=== PATIENT | female | born 1965 | race American Indian/Alaskan Native ===

== ENCOUNTER 2016-09-26 17:04 | Emergency (ER) | payer MEDICAID, OTHER ==
--- NOTE | 2016-09-26 17:14 | EDM.PDOC ---
ED HPI Trauma - General Chief Complaint: Lower Extremity Injury/Pain Stated Complaint: KNEE PAIN [id number] Time Seen by Provider: 09/26/16 17:13 Source: Reports: Patient, Old records, RN, RN notes reviewed History Limitations: Reports: No limitations - History of Present Illness INITIAL COMMENTS - FREE TEXT/NARRATIVE: Patient complaining of left knee pain sustained today while walking. Patient felt a sudden and unexpected audible pop in the left knee. She reports immediate intense pain at left medial knee joint line with medial swelling. Denies fell today. Symptom Onset Date: 09/26/16 Method of Injury: other (walking) Severity: severe Pain/Injury Location: Reports: lower extremity, left Associated Symptoms: Reports: no other symptoms Allergies/ADRs: Allergies ibuprofen Allergy (Verified 09/26/16 17:10) Rash Home Medications: Ambulatory Orders Insulin Aspart [Novolog Flexpen] 10 units SQ TID 08/16/14 [Confirmed 09/26/16] Insulin Detemir [Levemir] 20 units SQ BEDTIME PRN 08/16/14 [Confirmed 09/26/16] Past Medical History Respiratory History: Reports: Bronchitis, recurrent, COPD Musculoskeletal History: Reports: Back pain, chronic, Osteoarthritis Other Musculoskeletal History: disc problems Endocrine/Metabolic History: Reports: Diabetes, type II, IDDM, Obesity/BMI 30+ - Past Surgical History GI Surgical History: Reports: Appendectomy Social & Family History - Family History Family Medical History: Noncontributory - Tobacco Use Smoking Status *Q: Current Every Day Smoker Tobacco Use Within Last Twelve Months: Cigarettes Years of Tobacco use: 25 Packs/Tins Daily: 0.5 Used Tobacco, but Quit: No Second Hand Smoke Exposure: No - Alcohol Use Days Per Week of Alcohol Use: 0 - Recreational Drug Use Recreational Drug Use: Yes Drug Use in Last 12 Months: No Recreational Drug Type: Reports: Oxycodone, Other (see below) - Living Situation & Occupation Living situation: Reports: with family Review of Systems - Review of Systems Review Of Systems: ROS reveals no pertinent complaints other than HPI. Trauma Exam - Physical Exam Exam: See Below Exam Limited By: No limitations General Appearance: Reports: alert, WD/WN, no apparent distress Respiratory Exam: Reports: no respiratory distress Cardiovascular: Reports: normal peripheral pulses Back: Reports: full range of motion, normal inspection, non-tender Extremities: Reports: other (left knee with mild medial swelling, no visible bruising or deformity. Decreased range of motion due to pain. Skin is intaact. 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, no motor/sensory deficits, alert , normal mood/affect, oriented x 3 Skin: Reports: Normal color, Warm/dry Course - Vital Signs Last Recorded V/S: Last Vital Signs Temp 36.0 C 09/26/16 17:14 Pulse 73 09/26/16 17:14 Resp 18 09/26/16 17:14 BP 169/75 H 09/26/16 17:14 Pulse Ox 100 09/26/16 17:14 - Orders/Labs/Meds Orders: Active Orders 24 hr Category Date Time Status Immobilizer [RC] ASDIRECTED Care 09/26/16 18:08 Ordered Acetaminophen/HYDROcodone [[place] 325-10 MG] Med 09/26/16 18:08 Once 1 tab PO ONETIME ONE DME for Discharge [COMM] Routine Oth 09/26/16 18:08 Ordered - Radiology Interpretation Free Text/Narrative:: Knee x-ray: Chronic degenerative change. No fracture. See rad report. Departure - Departure Time of Disposition: 18:09 Disposition: Home, Self-Care 01 Condition: good Clinical Impression: Effusion of left knee joint Osteoarthritis of left knee Qualifiers: Osteoarthritis type: unspecified Qualified Code(s): M17.12 - Unilateral primary osteoarthritis, left knee Left knee sprain Qualifiers: Encounter type: initial encounter Involved ligament of knee: medial collateral ligament Qualified Code(s): S83.412A - Sprain of medial collateral ligament of left knee, initial encounter Instructions: Knee Sprain, [id number], Knee Immobilizer, [id number], Knee Effusion, [id number] Forms: ED Department Discharge Additional Instructions: Use left knee immobilizer and crutches as needed. Rest, ice packs, and elevate left knee to reduce pain and swelling. Rx: Acetaminophen-Codeine 300mg/30mg *Do not drive while under the influence of this medication. Follow up in clinic next week for recheck. - My Orders Last 24 Hours: My Active Orders 09/26/16 18:08 Immobilizer [RC] ASDIRECTED Acetaminophen/HYDROcodone [[place] 325-10 MG] 1 tab PO ONETIME ONE DME for Discharge [COMM] Routine - Assessment/Plan Last 24 Hours: My Active Orders 09/26/16 18:08 Immobilizer [RC] ASDIRECTED Acetaminophen/HYDROcodone [[place] 325-10 MG] 1 tab PO ONETIME ONE DME for Discharge [COMM] Routine
[2016-09-26 17:17] VITALS: BP 169/75
[2016-09-26] MEDS ORDERED: Acetaminophen/HYDROcodone 325-10 MG Tab PO ONE (18:08)
== END 2016-09-26 18:35 | disposition home or self-care (01) ==
LOC: DL.ED 17:04
DX: S83.412A Sprain of medial collateral ligament of left knee, initial encounter (principal); M17.12 Unilateral primary osteoarthritis, left knee; J44.9 Chronic obstructive pulmonary disease, unspecified; E11.9 Type 2 diabetes mellitus without complications; E66.9 Obesity, unspecified; F17.210 Nicotine dependence, cigarettes, uncomplicated; Z90.49 Acquired absence of other specified parts of digestive tract; Z88.6 Allergy status to analgesic agent; W19.XXXA Unspecified fall, initial encounter
CPT/HCPCS: 73562; 99283; A9270

== ENCOUNTER 2016-10-19 18:31 | Emergency (ER) | payer MEDICAID, OTHER ==
[2016-10-19 18:58] VITALS: BP 146/75
[2016-10-19] MEDS ORDERED: Bacitracin Oint 1 GM U/D Packet TOP ONE (20:42)
[2016-10-19] MEDS ORDERED: Lidocaine 1% 30 ML SDV INJECT ONE (20:42)
--- NOTE | 2016-10-19 21:04 | EDM.PDOC ---
ED HPI Skin/Rash - General Chief Complaint: Laceration Stated Complaint: CUT TO FOREHEAD,STILL BLEEDING Time Seen by Provider: 10/19/16 20:35 Source: Reports: Patient History Limitations: Reports: No limitations - History of Present Illness INITIAL COMMENTS - FREE TEXT/NARRATIVE: This 51 yo female patient reports to the ED due to a fall in the bathroom due to weakness of her left knee. The patient has a laceration to her left forehead with no loss of consciousness. Symptom Onset Date: 10/19/16 Timing: Reports: still present Location, Skin: Reports: face Quality: Reports: Ache, Dull Severity: moderate Known Identified Source: no When: prior to symptom onset Place of Occurrence: home Sick Contact: no Associated Symptoms: Reports: no other symptoms Similar Symptoms Previously: no Recent Medical Care: no - Related Data Allergies Allergy/AdvReac Type Severity Reaction Status Date / Time ibuprofen Allergy Rash Verified 10/19/16 19:03 Home Meds: Ambulatory Orders Medication Instructions Recorded Confirmed Insulin Aspart [Novolog Flexpen] 10 units SQ TID 08/16/14 10/19/16 Insulin Detemir [Levemir] 20 units SQ BEDTIME PRN 08/16/14 10/19/16 Past Medical History HEENT History: Reports: None Cardiovascular History: Reports: None Respiratory History: Reports: Bronchitis, recurrent, COPD Gastrointestinal History: Reports: None Genitourinary History: Reports: None Musculoskeletal History: Reports: Back pain, chronic, Osteoarthritis Other Musculoskeletal History: disc problems Neurological History: Reports: None Psychiatric History: Reports: None Endocrine/Metabolic History: Reports: Diabetes, type II, IDDM, Obesity/BMI 30+ Hematologic History: Reports: None Immunologic History: Reports: None Oncologic (Cancer) History: Reports: None Dermatologic History: Reports: None - Infectious Disease History Infectious Disease History: Reports: None - Past Surgical History HEENT Surgical History: Reports: None Cardiovascular Surgical History: Reports: None GI Surgical History: Reports: Appendectomy Female Surgical History: Reports: None Social & Family History - Family History Family Medical History: Noncontributory - Tobacco Use Smoking Status *Q: Current Every Day Smoker Years of Tobacco use: 33 Packs/Tins Daily: 20 Used Tobacco, but Quit: No Second Hand Smoke Exposure: No - Caffeine Use Caffeine Use: Reports: Soda, Tea - Alcohol Use Days Per Week of Alcohol Use: 0 - Recreational Drug Use Recreational Drug Use: No Drug Use in Last 12 Months: No Recreational Drug Type: Reports: Oxycodone, Other (see below) - Living Situation & Occupation Living situation: Reports: with family ED ROS GENERAL - Review of Systems Review Of Systems: ROS reveals no pertinent complaints other than HPI. ED EXAM, SKIN/RASH Exam: See Below Exam Limited By: No limitations General Appearance: alert, WD/WN, no apparent distress Eye Exam: bilateral eye: EOMI, normal inspection Ears: normal external exam, normal canal, hearing grossly normal, normal TMs Nose: normal inspection, normal mucosa, no blood Throat/Mouth: Normal inspection, Normal lips, Normal teeth, Normal gums, Normal oropharynx, Normal voice, No airway compromise Head: facial tenderness (left forehead) Neck: normal inspection, supple, non-tender, full range of motion Respiratory/Chest: no respiratory distress, lungs clear, normal breath sounds, no accessory muscle use, chest non-tender Cardiovascular: normal peripheral pulses, regular rate, rhythm, no edema, no gallop, no JVD, no murmur, no rub GI/Abdominal: normal bowel sounds, soft, non tender, no organomegaly, no distention, no abnormal bruit, no mass (Female) Exam: Deferred Rectal (Female) Exam: Deferred Back Exam: normal inspection, full range of motion, NT Extremities: normal inspection, normal range of motion, non-tender, no pedal edema, normal capillary refill Neurological: alert, oriented, CN II-XII intact, normal cognition, normal gait, normal reflexes, no motor/sensory deficits Psychiatric: normal affect, normal mood Skin: Warm, Dry, No rash Location, Skin: head Characteristics: linear ED SKIN PROCEDURES - Laceration/Wound Repair Left Forehead Lac/wound length in cm: 1.5 Appearance: subcutaneous Distal NVT: neuro & vascular intact Anesthetic type: local Local anesthesia - Lidocaine (Xylocaine): 1% plain Local anesthetic volume: 4cc Skin prep: saline Exploration/Debridement/Repair: wound explored, no foreign material found Closed with: sutures Suture size: other (5-0) # of sutures: 7 Suture type: prolene, interrupted, simple Drain placement: No Sterile dressing applied: nurse Tetanus status addressed: Yes Complications: No Course - Vital Signs Last Recorded V/S: Last Vital Signs Temp 36.0 C 10/19/16 18:53 Pulse 74 10/19/16 18:53 Resp 18 10/19/16 18:53 BP 146/75 H 10/19/16 18:53 Pulse Ox 99 10/19/16 18:53 - Orders/Labs/Meds Meds: Medications Discontinued Medications Generic Name Dose Route Start Last Admin Trade Name Savana PRN Reason Stop Dose Admin Bacitracin 1 dose 10/19/16 20:42 10/19/16 20:51 Bacitracin Oint 1 Gm TOP 10/19/16 20:43 1 dose ONETIME ONE Administration Lidocaine HCl 30 ml 10/19/16 20:42 10/19/16 20:51 Xylocaine-Mpf 1% INJECT 10/19/16 20:43 30 ml ONETIME ONE Administration Departure - Departure Time of Disposition: 21:02 Disposition: Home, Self-Care 01 Condition: fair Clinical Impression: Laceration of forehead Qualifiers: Encounter type: initial encounter Qualified Code(s): S01.81XA - Laceration without foreign body of other part of head, initial encounter Instructions: Laceration Care, Adult, [id number] Forms: ED Department Discharge Care Plan Goals: The patient was advised of the examination results during the visit. The skin margins were well approximated during the visit. The patient should keep the area clean and dry over the next 48 hours. The patient should have the sutures removed in 5-7 days. If the patient has any additional symptoms, the patient should follow-up with her primary care facility or return to the emergency department.
== END 2016-10-19 21:19 | disposition home or self-care (01) ==
LOC: DL.ED 18:31
DX: S01.81XA Laceration without foreign body of other part of head, initial encounter (principal); J44.9 Chronic obstructive pulmonary disease, unspecified; E11.9 Type 2 diabetes mellitus without complications; E66.9 Obesity, unspecified; F17.210 Nicotine dependence, cigarettes, uncomplicated; Z88.6 Allergy status to analgesic agent; Z90.49 Acquired absence of other specified parts of digestive tract; W18.09XA Striking against other object with subsequent fall, initial encounter; Y92.091 Bathroom in other non-institutional residence as the place of occurrence of the external cause
CPT/HCPCS: 12011; 99283

== ENCOUNTER 2019-06-17 15:27 | Emergency (ER) | payer MEDICAID ==
[2019-06-17 15:44] VITALS: BP 150/74; PULSE 85
[2019-06-17] MEDS ORDERED: HYDROmorphone 1 MG/ML Syringe IVPUSH ONE (16:17)
[2019-06-17 16:23] LABS: ANION GAP 11.1; CHLORIDE,CL 108 mmol/L (101-111); SODIUM,NA 139 mmol/L (135-145)
--- NOTE | 2019-06-17 16:25 | EDM.PDOC ---
ED HPI GENERAL MEDICAL PROBLEM - General Chief Complaint: Back Pain or Injury Stated Complaint: BACK SURGERY, LOWER BACK ALOT OF PAIN. Time Seen by Provider: 06/17/19 15:50 Source of Information: Reports: Patient History Limitations: Reports: No Limitations - History of Present Illness INITIAL COMMENTS - FREE TEXT/NARRATIVE: This 54 yo female patient reports to the ED due to increased lower back pain. The patient had surgery in [place] on Thursday. Since that time, the patient has been walking with her walker. The patient reports she had had increased pain despite taking her medications. The patient reports she started taking 2 of her Oxycodone (5 mg) at a time for her pain. The patient reports she took her last pill this morning. The patient and daughter have called the surgeon in [place], but have not received a return call. The patient reports she had surgery from Dr. Rebollar (Neurosurgery). Onset: Gradual Duration: Day(s):, Constant, Getting Worse Location: Reports: Back Quality: Reports: Ache, Sharp, Stabbing Severity: Moderate Improves with: Reports: None Worsens with: Reports: None Context: Reports: Other (Surgery on Thursday) Associated Symptoms: Reports: No Other Symptoms Lower Back Pain Score (Numeric/FACES): 10 - Related Data Allergies Allergy/AdvReac Type Severity Reaction Status Date / Time ibuprofen Allergy Rash Verified 06/17/19 15:42 Home Meds: Home Meds Insulin Aspart [Novolog Flexpen] 10 units SQ TID 08/16/14 [History] Insulin Detemir [Levemir] 20 units SQ BEDTIME PRN 08/16/14 [History] oxyCODONE 5 mg PO PRN 06/17/19 [History] Past Medical History HEENT History: Reports: None Cardiovascular History: Reports: None Respiratory History: Reports: Bronchitis, Recurrent, COPD Gastrointestinal History: Reports: None Genitourinary History: Reports: None 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 Musculoskeletal History: Reports: Back Pain, Chronic, Osteoarthritis Other Musculoskeletal History: disc problems Neurological History: Reports: None Psychiatric History: Reports: None Endocrine/Metabolic History: Reports: Diabetes, Type II, IDDM, Obesity/BMI 30+ Hematologic History: Reports: None Immunologic History: Reports: None Oncologic (Cancer) History: Reports: None Dermatologic History: Reports: None - Infectious Disease History Infectious Disease History: Reports: None - Past Surgical History Head Surgeries/Procedures: Reports: None HEENT Surgical History: Reports: None Cardiovascular Surgical History: Reports: None GI Surgical History: Reports: Appendectomy Female Surgical History: Reports: None Musculoskeletal Surgical History: Reports: Other (See Below) Other Musculoskeletal Surgeries/Procedures:: back surgery L4-5 Social & Family History - Family History Family Medical History: Noncontributory - Tobacco Use Smoking Status *Q: Current Every Day Smoker Years of Tobacco use: 44 Packs/Tins Daily: 1 - Caffeine Use Caffeine Use: Reports: Coffee, Tea - Recreational Drug Use Recreational Drug Use: No - Living Situation & Occupation Living situation: Reports: with Family ED ROS GENERAL - Review of Systems Review Of Systems: Comprehensive ROS is negative, except as noted in HPI. ED EXAM,LOWER BACK PAIN/INJURY - Physical Exam Exam: See Below Exam Limited By: No Limitations General Appearance: Alert, WD/WN, Moderate Distress, Obese Eye Exam: Bilateral Eye: EOMI, Normal Inspection, PERRL Ears: Normal External Exam, Normal Canal, Hearing Grossly Normal, Normal TMs Nose: Normal Inspection, Normal Mucosa, No Blood Throat/Mouth: Normal Inspection, Normal Lips, Normal Teeth, Normal Gums, Normal Oropharynx, Normal Voice, No Airway Compromise Head: Atraumatic, Normocephalic Neck: Normal Inspection, Supple, Non-Tender, Full Range of Motion Respiratory/Chest: No Respiratory Distress, Lungs Clear, Normal Breath Sounds, No Accessory Muscle Use, Chest Non-Tender Cardiovascular: Normal Peripheral Pulses, Regular Rate, Rhythm, No Edema, No Gallop, No JVD, No Murmur, No Rub GI/Abdominal: Normal Bowel Sounds, Soft, Non-Tender, No Organomegaly, No Distention, No Abnormal Bruit, No Mass (Female) Exam: Deferred Rectal (Female) Exam: Deferred Back Exam: Paraspinal Tenderness (lower back (near surgical site)), Vertebral Tenderness (lower back over surgical site) Extremities: Normal Inspection, Normal Range of Motion Neurological: Alert, Normal Mood/Affect, Oriented x 3 Psychiatric: Depressed Mood, Tearful Skin Exam: Other (Surgical site appears to be healing well with no evidence of erythema or drainage. ) Lymphatic: No Adenopathy Course - Vital Signs Last Recorded V/S: Last Vital Signs Temp 36.6 C 06/17/19 15:42 Pulse 85 06/17/19 15:42 Resp 20 11/29/19 15:42 BP 150/74 H 06/17/19 15:42 Pulse Ox 100 06/17/19 15:42 - Orders/Labs/Meds Labs: Laboratory Tests 06/17/19 06/17/19 06/17/19 Range/Units 15:53 15:53 15:53 WBC 10.1 H (5.0-10.0) 10^3/uL RBC 3.96 L (4.2-5.4) 10^6/uL Hgb 11.9 L D (12.0-16.0) g/dL Hct 36.4 L (37.0-47.0) % MCV 91.9 (80-100) fL MCH 30.1 (27.0-34.0) pg MCHC 32.7 L (33.0-35.0) g/dL Plt Count 261 D (150-450) 10^3/uL Neut % (Auto) 69.1 (42.2-75.2) % Lymph % (Auto) 20.1 L (20.5-50.1) % [place] % (Auto) 7.7 (2-8) % Eos % (Auto) 2.8 (1.0-3.0) % Baso % (Auto) 0.3 (0.0-1.0) % Sodium 139 (135-145) mmol/L Potassium 4.1 (3.6-5.0) mmol/L Chloride 108 (101-111) mmol/L Carbon Dioxide 24.0 (21.0-31.0) mmol/L Anion Gap 11.1 BUN 17 (7-18) mg/dL Creatinine 0.6 (0.6-1.3) mg/dL Est Cr Clr Drug Dosing 102.68 mL/min Estimated GFR (MDRD) > 60 BUN/Creatinine Ratio 28.33 Glucose 89 (74-105) mg/dL Calcium 8.3 L (8.4-10.2) mg/dl Total Bilirubin 0.5 (0.2-1.0) mg/dL AST 38 (10-42) IU/L ALT 43 (10-60) IU/L Alkaline Phosphatase 110 (42-121) IU/L Total Protein 7.1 (6.7-8.2) g/dl Albumin 3.2 (3.2-5.5) g/dl Globulin 3.9 Albumin/Globulin Ratio 0.82 Urine Color (YELLOW) Urine Appearance (CLEAR) Urine pH (5.0-9.0) Ur Specific [place] (1.005-1.030) Urine Protein (NEGATIVE) Urine Glucose (UA) (NEGATIVE) Urine Ketones (NEGATIVE) Urine Occult Blood (NEGATIVE) Urine Nitrite (NEGATIVE) Urine Bilirubin (NEGATIVE) Urine Urobilinogen (0.2-1.0) mg/dL Ur Leukocyte Esterase (NEGATIVE) Urine Opiates Screen (NEGATIVE) Ur Oxycodone Screen (NEGATIVE) Urine Methadone Screen (NEGATIVE) Acetaminophen 13.9 ug/mL Ur Barbiturates Screen (NEGATIVE) U Tricyclic Antidepress (NEGATIVE) Ur Phencyclidine Scrn (NEGATIVE) Ur Amphetamine Screen (NEGATIVE) U Methamphetamines Scrn (NEGATIVE) Urine MDMA Screen (NEGATIVE) U Benzodiazepines Scrn (NEGATIVE) Urine Cocaine Screen (NEGATIVE) U Marijuana (THC) Screen (NEGATIVE) 06/17/19 06/17/19 Range/Units 16:15 16:15 WBC (5.0-10.0) 10^3/uL RBC (4.2-5.4) 10^6/uL Hgb (12.0-16.0) g/dL Hct (37.0-47.0) % MCV (80-100) fL MCH (27.0-34.0) pg MCHC (33.0-35.0) g/dL Plt Count (150-450) 10^3/uL Neut % (Auto) (42.2-75.2) % Lymph % (Auto) (20.5-50.1) % [place] % (Auto) (2-8) % Eos % (Auto) (1.0-3.0) % Baso % (Auto) (0.0-1.0) % Sodium (135-145) mmol/L Potassium (3.6-5.0) mmol/L Chloride (101-111) mmol/L Carbon Dioxide (21.0-31.0) mmol/L Anion Gap BUN (7-18) mg/dL Creatinine (0.6-1.3) mg/dL Est Cr Clr Drug Dosing mL/min Estimated GFR (MDRD) BUN/Creatinine Ratio Glucose (74-105) mg/dL Calcium (8.4-10.2) mg/dl Total Bilirubin (0.2-1.0) mg/dL AST (10-42) IU/L ALT (10-60) IU/L Alkaline Phosphatase (42-121) IU/L Total Protein (6.7-8.2) g/dl Albumin (3.2-5.5) g/dl Globulin Albumin/Globulin Ratio Urine Color Yellow (YELLOW) Urine Appearance Clear (CLEAR) Urine pH 7.0 (5.0-9.0) Ur Specific [place] 1.015 (1.005-1.030) Urine Protein Negative (NEGATIVE) Urine Glucose (UA) Negative (NEGATIVE) Urine Ketones Negative (NEGATIVE) Urine Occult Blood Negative (NEGATIVE) Urine Nitrite Negative (NEGATIVE) Urine Bilirubin Negative (NEGATIVE) Urine Urobilinogen 0.2 (0.2-1.0) mg/dL Ur Leukocyte Esterase Negative (NEGATIVE) Urine Opiates Screen Negative (NEGATIVE) Ur Oxycodone Screen Positive H (NEGATIVE) Urine Methadone Screen Negative (NEGATIVE) Acetaminophen ug/mL Ur Barbiturates Screen Negative (NEGATIVE) U Tricyclic Antidepress Negative (NEGATIVE) Ur Phencyclidine Scrn Negative (NEGATIVE) Ur Amphetamine Screen Negative (NEGATIVE) U Methamphetamines Scrn Negative (NEGATIVE) Urine MDMA Screen Negative (NEGATIVE) U Benzodiazepines Scrn Negative (NEGATIVE) Urine Cocaine Screen Negative (NEGATIVE) U Marijuana (THC) Screen Negative (NEGATIVE) Meds: Medications Discontinued Medications Generic Name Dose Route Start Last Admin Trade Name Freq PRN Reason Stop Dose Admin Hydromorphone HCl 0.5 mg 06/17/19 16:17 06/17/19 16:29 Dilaudid IVPUSH 06/17/19 16:18 0.5 mg ONETIME ONE Administration - Re-Assessments/Exams Free Text/Narrative Re-Assessment/Exam: 06/17/19 16:[address] Rebollar (Neurosurgery). Dr. Rebollar advised that the patient needs to take her medications as prescribed. The patient needs to reduce her pain medication use by next week. Dr. Rebollar advised to give the patient a prescription for Oxycodone (10 mg) #40 to take 1 by mouth every 4 hours as needed for pain. The patient should be encouraged to rest, use ice and heat. Departure - Departure Time of Disposition: 16:53 Disposition: Home, Self-Care 01 Condition: Fair Clinical Impression: Low back pain Qualifiers: Chronicity: chronic Back pain laterality: left Sciatica presence: without sciatica Qualified Code(s): M54.5 - Low back pain - Discharge Information *PRESCRIPTION DRUG MONITORING PROGRAM REVIEWED*: Yes *COPY OF PRESCRIPTION DRUG MONITORING REPORT IN PATIENT NITIN: Yes Forms: ED Department Discharge Care Plan Goals: The patient and daughter were advised of the examination and lab results during the visit. Dr. Rebollar (Neurosurgery) was consulted during the visit. Dr. Rebollar advised that the patient needs to take her medications as prescribed. The patient needs to reduce her pain medication use by next week. Dr. Rebollar advised to give the patient a prescription for Oxycodone (10 mg) #40 to take 1 by mouth every 4 hours as needed for pain. The patient should be encouraged to rest, use ice and heat. The patient was given an IV dose of Dilaudid while in the ED for temporary symptom relief. If the patient has any additional symptoms or concerns , the patient should either return to the emergency department or visit her primary care facility.
== END 2019-06-17 17:01 | disposition home or self-care (01) ==
LOC: DL.ED 15:27
DX: G89.29 Other chronic pain (principal); M54.5 Low back pain; E66.9 Obesity, unspecified; F17.210 Nicotine dependence, cigarettes, uncomplicated; Z88.8 Allergy status to other drugs, medicaments and biological substances; Z68.41 Body mass index [BMI] 40.0-44.9, adult
CPT/HCPCS: 36415; 80053; 80305; 80329; 81003; 85025; 96374; 99283; J1170; G0480